=== PATIENT | female | born 1950 | race Caucasian/White ===

== ENCOUNTER 2019-04-20 02:01 | Day surgery (SDC) | payer MEDICARE, SELFPAY ==
[2019-04-14 10:58] VITALS: BMI 25.8
[2019-04-20 08:00] VITALS: BP 162/84; PULSE 88; RESP 18; TEMP 36.2; O2SAT 98; BMI 25.4
--- NOTE | 2019-04-20 08:33 | WPDANESEPPF ---
Anes - Initial Pre Proc Eval Procedure: Operation Date: 04/20/19 09:00 Proposed Procedures p Esophagogastroduodenoscopy - Perez Elizondo MD Date/Time: 04/20/19 08:33 Surgeon: Perez Elizondo MD Pre Op Diagnosis: GERD Patient Data Age: 69 Gender: F Height: 5 ft 2 in Weight: 63 kg Last Vital Signs Temp 36.2 C L 04/20/19 08:00 Pulse 88 04/20/19 08:00 Resp 18 04/20/19 08:00 BP 162/84 H 04/20/19 08:00 Pulse Ox 98 04/20/19 08:00 Allergies Allergy/AdvReac Type Severity Reaction Status Date / Time No Known Allergies Allergy Mild Verified 04/20/19 08:10 Home Medications Medication Instructions Recorded Confirmed Type calcium carbonate 600 mg (1,500 1 tablet PO BID #60 tablet 03/18/19 04/14/19 Rx mg)-vitamin D3 400 unit tablet fenofibrate 160 mg tablet 160 mg PO DAILY 03/18/19 04/14/19 History gabapentin 300 mg capsule 600 mg PO .qhs cap 03/18/19 04/14/19 History metoprolol tartrate 100 mg tablet 100 mg PO DAILY 03/18/19 04/14/19 History omeprazole 20 mg capsule,delayed 10 mg PO DAILY cap 03/18/19 04/14/19 History release pravastatin 40 mg tablet 40 mg PO DAILY 03/18/19 04/14/19 History semaglutide 1 mg/dose (2 mg/1.5 1 mg SUB-Q WEEKLY 90 Days #9.75 ml 03/18/19 04/14/19 Rx mL) subcutaneous pen injector insulin lispro 100 unit/mL See Rx Instructions .ROUTE 03/22/19 04/14/19 Rx subcutaneous pen .COMPLEX #270 ml blood-glucose meter,continuous #1 each 03/24/19 Rx blood-glucose sensor #3 each 03/24/19 Rx blood-glucose transmitter #3 each 03/24/19 Rx acetaminophen [Tylenol Arthritis 650 mg PO Q12H 04/14/19 04/14/19 History Pain] insulin glargine U-300 conc 110 unit SUB-Q DAILY 04/14/19 04/14/19 History [Toujeo SoloStar U-300 Insulin] ergocalciferol (vitamin D2) 1,250 1,250 mcg PO WEEKLY #12 cap 04/18/19 Rx mcg (50,000 unit) capsule Patient hx anesthesia problems: none Family hx anesthesia problems: none PMFSH Past Medical History Medical History Arthritis Diabetes Hyperlipidemia Hypertension Family History Family History Sibling Family history of diabetes mellitus in first degree relative Grandparent Diabetes mellitus Other Cerebrovascular accident Family history of cardiovascular disease Family history of malignant melanoma Social History Social History Smoking status: Never smoker Alcohol intake: current Anes - Eval Final PreProcedure Day of Procedure 04/20/19 08:33 Patient weight: normal Heart: regular rate and rhythm Lungs: clear to auscultation Airway: Mallampati scale class III Neurological: alert and oriented Last oral intake: >/= 8 hours ASA classification: III Emergent: no Anesthetic plan: proceed Anesthesia type and monitoring: general GIVS and standard monitoring Informed Consent: The patient's anesthetic plan and its attendant risks and benefits were discussed with the patient/family/POA. Questions were solicited and answers provided to the satisfaction of the patient/family/POA.
[2019-04-20 08:34] LABS: Glucose Point of Care 103 (65-105)
[2019-04-20] MEDS: LACTATED RINGERS 1,000 ML 150 ML IV CONT (08:38)
--- NOTE | 2019-04-20 08:56 | WPDGICN ---
Assessment and Plan Additional Plan This is a 69-year-old white female patient seen in evaluation at the request of Dr. Albert Mccurdy. Patient has a long history of GE reflux disease. With heartburn indigestion. Previously treated with omeprazole she felt this caused her to have diarrhea. She currently takes Pepcid which she feels may cause her to have constipation. She denies any blood in her stools. She states that heartburn is well controlled with Pepcid or the omeprazole. Because of persistent symptoms she presents today for EGD. She denies any dysphagia. She denies any bleeding. Past medical history is significant for diabetes. Elevated cholesterol. Hypertension. Arthritis. Current medications include Tylenol. Calcium. Fenofibrate. Gabapentin. Insulin. Omeprazole pravastatin. She has no stated drug allergies. Family history is noncontributory. There is no history of colon rectal or stomach disease. Physical exam reveals her to be alert. Vital signs stable. HEENT exam unremarkable. Lungs are clear to auscultation and percussion. Heart is without murmur or extra sounds. Abdominal exam bowel sounds are present soft nontender with no organomegaly. Digital external rectal exam normal. Impression 1. Heartburn. Consistent with GERD. Plan is to continue acid suppression with Pepcid or omeprazole. 2. Alternating bowel habits. Change in bowel habits could consistent with irritable bowel syndrome. Plan is for fiber supplementation. Colonoscopy could be considered electively for screening purposes. Plan is for EGD today to assess her ongoing heartburn in GE reflux disease. Elective colonoscopy according to screening guidelines if not already accomplished. GI Consult Note Consult date/time: 04/20/19 08:56 HPI: Kassandra Morataya is a 69 year old female [facility] Past Medical History Medical History Arthritis Diabetes Hyperlipidemia Hypertension Family History Family History Sibling Family history of diabetes mellitus in first degree relative Grandparent Diabetes mellitus Other Cerebrovascular accident Family history of cardiovascular disease Family history of malignant melanoma Social History Social History Smoking status: Never smoker Alcohol intake: current Meds Home Medications and Allergies Home Medications Medication Instructions Recorded Confirmed Type calcium carbonate 600 mg (1,500 1 tablet PO BID #60 tablet 03/18/19 04/14/19 Rx mg)-vitamin D3 400 unit tablet fenofibrate 160 mg tablet 160 mg PO DAILY 03/18/19 04/14/19 History gabapentin 300 mg capsule 600 mg PO .qhs cap 03/18/19 04/14/19 History metoprolol tartrate 100 mg tablet 100 mg PO DAILY 03/18/19 04/14/19 History omeprazole 20 mg capsule,delayed 10 mg PO DAILY cap 03/18/19 04/14/19 History release pravastatin 40 mg tablet 40 mg PO DAILY 03/18/19 04/14/19 History semaglutide 1 mg/dose (2 mg/1.5 1 mg SUB-Q WEEKLY 90 Days #9.75 ml 03/18/19 04/20/19 Rx mL) subcutaneous pen injector insulin lispro 100 unit/mL See Rx Instructions .ROUTE 03/22/19 04/14/19 Rx subcutaneous pen .COMPLEX #270 ml blood-glucose meter,continuous #1 each 03/24/19 Rx blood-glucose sensor #3 each 03/24/19 Rx blood-glucose transmitter #3 each 03/24/19 Rx acetaminophen [Tylenol Arthritis 650 mg PO Q12H 04/14/19 04/14/19 History Pain] insulin glargine U-300 conc 110 unit SUB-Q DAILY 04/14/19 04/14/19 History [Toujeo SoloStar U-300 Insulin] ergocalciferol (vitamin D2) 1,250 1,250 mcg PO WEEKLY #12 cap 04/18/19 Rx mcg (50,000 unit) capsule Allergies Allergy/AdvReac Type Severity Reaction Status Date / Time No Known Allergies Allergy Mild Verified 04/20/19 08:10 Vital Signs Vital Signs - 24 hr 04/20/19 08:00 Temperature 36.2 C L Pulse Rat
[2019-04-20 09:11] VITALS: BP 104/76; PULSE 76; RESP 18; O2SAT 95
[2019-04-20 09:21] VITALS: BP 118/74; PULSE 83; RESP 18; O2SAT 95
[2019-04-20 09:31] VITALS: BP 137/77; PULSE 78; RESP 18; O2SAT 95
== END 2019-04-20 09:39 | disposition home or self-care (01) ==
PROVIDERS: PCP Family Medicine Adolescent Medicine; Visit Provider Internal Medicine Gastroenterology
PROC: 0DJ08ZZ Inspection of Upper Intestinal Tract, Via Natural or Artificial Opening Endoscopic (ICD-10-PCS; CPT 43235; principal; 2019-04-20 09:00)
DX: K21.9 Gastro-esophageal reflux disease without esophagitis (principal); R19.4 Change in bowel habit; I10 Essential (primary) hypertension; E78.5 Hyperlipidemia, unspecified; E11.9 Type 2 diabetes mellitus without complications; M19.90 Unspecified osteoarthritis, unspecified site; Z79.4 Long term (current) use of insulin
CPT/HCPCS: 43239; 87081; J2704; J7120

== ENCOUNTER → 2020-01-06 10:24 | Outpatient (CLI) | payer MEDICARE, SELFPAY ==
--- NOTE | ~2020-01-06 | MM_ITS ---
EXAMINATION: MM screening елена BI w nahun HISTORY: Screening TECHNIQUE: Craniocaudal and mediolateral oblique 3-D tomosynthesis images were obtained and synthetic 2-D images were generated. CAD analysis was submitted and interpreted. COMPARISON: Comparison to multiple prior studies sequentially, with oldest reviewed study dated 04/19. BREAST PARENCHYMAL COMPOSITION: There are scattered areas of fibroglandular density. FINDINGS: There is no evidence of suspicious mass, calcification, or architectural distortion to sugg est malignancy in either breast. There has been no suspicious interval change. IMPRESSION: 1. No mammographic evidence of malignancy. 2. Recommend routine screening mammography in one year. BI-RADS Category 1: Negative Reviewed, dictated and finalized at location A.
== END ==
PROVIDERS: Visit Provider Internal Medicine Endocrinology, Diabetes & Metabolism
DX: Z12.31 Encounter for screening mammogram for malignant neoplasm of breast (principal)
CPT/HCPCS: 77063; 77067

== ENCOUNTER 2020-06-18 15:09 | Outpatient (CLI) | payer MEDICARE, SELFPAY ==
[2020-06-18 16:18] LABS: HDL Direct 45 mg/dL
[2020-06-18 16:28] LABS: LDL Cholesterol Direct 66 mg/dL
[2020-06-18 16:35] LABS: Vitamin D 25 Hydroxy 48.6 ng/mL
[2020-06-18 16:36] LABS: Creatinine Urine 52.4 mg/dL
[2020-06-18 16:53] LABS: MALB Creatinine Ratio < 11.5 mg/g (0-30); Microalbumin Urine Random < 6.0 mg/L (0-16.7)
== END 2020-06-18 15:10 | disposition home or self-care (01) ==
LOC: ANHWCLAB 15:12
PROVIDERS: Referring Provider Internal Medicine Endocrinology, Diabetes & Metabolism; Visit Provider Internal Medicine Endocrinology, Diabetes & Metabolism
DX: E11.9 Type 2 diabetes mellitus without complications (principal); M81.0 Age-related osteoporosis without current pathological fracture; R79.89 Other specified abnormal findings of blood chemistry
CPT/HCPCS: 36415; 82043; 82306; 83718; 83721

== ENCOUNTER → 2021-07-12 10:59 | Outpatient (CLI) | payer MEDICARE, SELFPAY ==
--- NOTE | ~2021-07-12 | DEXA_ITS ---
Bone Density Report Name: TOMAS CARRASCO Age: 71 Sex: Female Ethnicity: White Date of : 1950 Indication: postmenopausal; screening for osteoporosis; prior fracture; Referring Provider: TUAN GILL Study: Bone densitometry was performed. Exam Date: July 12, 2021 Accession number: [id number] Bone Density: Region BMD T-score Z-score Classification AP Spine (L1-L4) 1.064 0.2 2.4 Normal Femoral Neck (Left) 0.774 -0.7 1.2 Normal Total Hip (Left) 0.869 -0.6 1.0 Normal Femoral Neck (Right) 0.790 -0.5 1.4 Normal Total Hip (Right) 0.858 -0.7 0.9 Normal Total Hip Mean 0.864 -0.7 1.0 Normal World Health Organization criteria for BMD impression classify patients as: Normal (T-score at or above -1.0), Osteopenia (T-score between -1.0 and -2.5), or Osteoporosis (T-score at or below -2.5). 10-year Fracture Risk: FRAX not reported because: All T-scores for Spine Total, Hip Total, Femoral Neck at or above -1.0 Previous Exams: Region Exam Age BMD T-score BMD Change BMD Change Date g/cm2 vs Baseline vs Previous AP Spine(L1-L4) 07/12/2021 71 1.064 0.2 0.163* -0.009 04/14/2019 69 1.074 0.2 0.172* 0.129* 11/16/2012 62 0.945 -0.9 0.043* 0.043* 04/19/2010 60 0.901 -1.3 Total Hip(Left) 07/12/2021 71 0.869 -0.6 0.056* 0.026 04/14/2019 69 0.842 -0.8 0.030* -0.009 11/16/2012 62 0.851 -0.7 0.039* 0.039* 04/19/2010 60 0.813 -1.1 Total Hip(Right) 07/12/2021 71 0.858 -0.7 0.065* 0.018 04/14/2019 69 0.840 -0.8 0.048* 0.020 11/16/2012 62 0.820 -1.0 0.027* 0.027* 04/19/2010 60 0.792 -1.2 *Denotes significance at 95% confidence level, LSC for AP Spine = 0.022 g/cm2, LSC for Total Hip = 0.027 g/cm2 Clinical Information Provided by Patient: Has had a low trauma fracture Smokes Has used the following medications: Vitamin D Patient maximum height was 62.5 Menopause Age: 55 No regular weight bearing exercise Drinks caffeinated beverages Onset of menses at age 13 Number of children 1 Impression: The patient has normal bone mass. The patient has risk factors, including: smoking, previous fracture. No significant bone loss was observed. Discussion: BONE DENSITY IS ABOVE THE MINIMUM DESIRABLE LEVEL AT ALL SKELETAL SITES TESTED. This pat
== END ==
PROVIDERS: PCP Family Medicine Adolescent Medicine; Visit Provider Nurse Practitioner Family
DX: M81.0 Age-related osteoporosis without current pathological fracture (principal)
CPT/HCPCS: 77080

== ENCOUNTER → 2021-07-12 11:00 | Outpatient (CLI) | payer MEDICARE, SELFPAY ==
--- NOTE | ~2021-07-12 | MM_ITS ---
EXAMINATION: MM screening елена BI w nahun HISTORY: Screening mammogram TECHNIQUE: Craniocaudal and mediolateral oblique 3-D tomosynthesis images were obtained and synthetic 2-D images were generated. CAD analysis was submitted and interpreted. COMPARISON: 01/06/2020, 10/09/2018, 08/07/2016 bilateral screening mammogram examinations BREAST PARENCHYMAL COMPOSITION: There are scattered areas of fibroglandular density. FINDINGS: There is no evidence of suspicious mass, calcification, or architectural distortion to sugg est malignancy in either breast. There has been no suspicious interval change. IMPRESSION: 1. No mammographic evidence of malignancy. 2. Recommend routine screening mammography in one year. BI-RADS Category 1: Negative Reviewed, dictated and finalized at location A.
== END ==
PROVIDERS: PCP Family Medicine Adolescent Medicine; Visit Provider Family Medicine Adolescent Medicine
DX: Z12.31 Encounter for screening mammogram for malignant neoplasm of breast (principal)
CPT/HCPCS: 77063; 77067

== ENCOUNTER → 2021-12-09 08:45 | Outpatient (CLI) | payer MEDICARE, SELFPAY ==
--- NOTE | ~2021-12-09 | CT_ITS ---
EXAMINATION: CT abdomen pelvis w con DATE: 12/09/2021 09:14 INDICATION: Left upper quadrant tenderness. Diarrhea. TECHNIQUE: Computed tomography (CT) of the abdomen and pelvis was performed with 100 cc Omnipaque 350 intravenous contrast. The dose-length product was 452.65 mGy-cm. Automated exposure control and iter ative reconstruction technique were employed. COMPARISON: None. FINDINGS: There is a small 2 mm right lower lobe nodule, likely benign. Heart size normal. No signifi cant pleural or pericardial effusion. Moderate atherosclerosis of the aorta without evidence for aneu rysm. No lymphadenopathy. There is mild thickening of the gastric wall which may be due to underdiste ntion or gastritis. Fatty infiltration of the liver. Gallbladder is present. Colonic diverticulosis without evidence for diverticulitis. No free air or fr ee fluid. The spleen, pancreas, adrenal glands and kidneys are unremarkable. There is a partially obinna cified uterine fibroid. Mild-moderate lower thoracic and lumbar spondylosis. IMPRESSION: 1. Gastric wall thickening which may be due to underdistention or gastritis. Reviewed, dictated and finalized at location A.
[2021-12-10 14:25] LABS: Estimated Glomerular Filt Rate 55
== END ==
PROVIDERS: PCP Family Medicine Adolescent Medicine; Visit Provider Physician Assistant
DX: R10.812 Left upper quadrant abdominal tenderness (principal); M47.815 Spondylosis without myelopathy or radiculopathy, thoracolumbar region; R19.7 Diarrhea, unspecified; K57.30 Diverticulosis of large intestine without perforation or abscess without bleeding; D25.9 Leiomyoma of uterus, unspecified
CPT/HCPCS: 74177; Q9967

== ENCOUNTER 2022-04-17 14:30 | Outpatient (CLI) | payer MEDICARE, SELFPAY ==
--- NOTE | ~2022-04-17 | US_ITS ---
EXAMINATION: US art doppler w press LE DATE: 04/17/2022 16:13 INDICATION: Peripheral arterial disease. TECHNIQUE: Segmental pressures and plethysmographic and Doppler waveforms of the brachial and lower e xtremity arteries were obtained. COMPARISON: None. FINDINGS: Right and left brachial artery pressures of 143 mm Hg and 140 mm Hg, respectively, are concordant (no rmal difference <= 30 mmHg). The right low-thigh pressure index is 1.20. The right ankle-brachial index (THERESA) is 0.78 (normal >= 0 .9-1.0). The right great toe-brachial index (TBI) is 0.43 (normal >= 0.65). The right lower extremity segmental pressure gradients are increased between below knee and ankle measurements (normal gradien ts <= 20-30 mmHg between adjacent levels on the same leg or the same levels on the two legs). Arteria l Doppler waveforms are biphasic from common femoral artery to the ankle. The left low-thigh pressure index is 1.10. The left THERESA is 0.66. The left TBI is 0.35. The left lower extremity segmental pressure gradients are increased from above-knee and below-knee measurements. Ar terial Doppler waveforms are biphasic from common femoral artery to the ankle. IMPRESSION: 1. Mildly decreased right THERESA and moderately decreased left THERESA, consistent with arterial occlusive d isease, likely predominantly in the right calf and left popliteal regions. Reviewed, dictated and finalized at location A. [employer]INTING MACHINE OPERATOR IMPRESSION: 1. Mildly decreased right THERESA and moderately decreased left THERESA, consistent wit h arterial occlusive disease, likely predominantly in the right calf and left p opliteal regions.
== END 2022-04-17 14:31 | disposition home or self-care (01) ==
PROVIDERS: PCP Family Medicine Adolescent Medicine; Visit Provider Internal Medicine Cardiovascular Disease
DX: I73.9 Peripheral vascular disease, unspecified (principal); M62.89 Other specified disorders of muscle
CPT/HCPCS: 93923

== ENCOUNTER 2024-06-28 10:16 | Outpatient (CLI) | payer MEDICARE, SELFPAY ==
--- NOTE | ~2024-06-28 | MR_ITS ---
MRI of the right shoulder Technique: Axial proton-density fat-sat images, coronal proton density fat-sat and T2 fat-sat images, and sagittal T1-weighted and T2 fat-sat images were acquired. Clinical History: Pain Findings: There is severe AC joint degenerative change, bony productive change of the distal clavicle , small subacromial spur, and fluid in the joint space. Coracoclavicular, coracoacromial, and coracoh umeral ligaments appear intact. There are full-thickness tears involving the entirety of the supraspinatus and infraspinatus tendons, which are retracted to the medial third of the humeral head. Fluid-filled gap overall measures up to approximately 3.5 x 3.7 cm in extent. Subscapularis tendon is intact. Tendon of the long head of the biceps is intact. No definite labral tear seen. Inferior glenohumeral ligament is intact. There are small glenohumeral joint effusion with fluid pass ing through the rotator cuff defect into the subacromial/subdeltoid bursa. No degenerative change of the glenohumeral joint. Probable mild fatty infiltration of the supraspinatus and infraspinatus muscl e bellies. Impression: Complete, full-thickness tears of the entirety of the supraspinatus and infraspinatus tendons, as det valerie above. Suspected mild fatty atrophic change/infiltration of these muscle bellies. Severe AC joint degenerative change. Reviewed, dictated and finalized at [facility]. Impression: Complete, full-thickness tears of the entirety of the supraspinatus and infrasp inatus tendons, as detailed above. Suspected mild fatty atrophic change/infiltr ation of these muscle bellies. Severe AC joint degenerative change.
== END 2024-06-28 10:17 | disposition home or self-care (01) ==
LOC: MICIMG 10:16
PROVIDERS: PCP Family Medicine Adolescent Medicine; Visit Provider Physician Assistant Surgical
DX: M75.101 Unspecified rotator cuff tear or rupture of right shoulder, not specified as traumatic (principal); M19.011 Primary osteoarthritis, right shoulder
CPT/HCPCS: 73221

== ENCOUNTER 2025-01-18 12:46 | Outpatient (CLI) | payer MEDICARE, SELFPAY ==
--- NOTE | ~2025-01-18 | MR_ITS ---
EXAMINATION: MR lumbar spine wo con DATE: 01/18/2025 13:45 INDICATION: Foot drop. TECHNIQUE: Magnetic resonance imaging (MRI) of the lumbar spine was performed without intravenous contrast. Sequences included sagittal T2-weighted FSE, sagittal T2-weighted FS FSE, sagittal T1-weighted FSE, and axial T2-weighted FSE. COMPARISON: None FINDINGS: There is 9 degrees levocurvature of lumbar spine. There is 3 mm anterolisthesis of L4 on L5. There is mild chronic anterior wedging of T12 vertebral body. There is severely decreased disc height at T12-L1, mildly decreased disc height at L2-L3, severely decreased disc height at L3-L4, moderat elaine decreased disc height at L4-L5, and spine disc height at L5-S1. The distal spinal cord signal intensity is normal. The conus medullaris is at T12-L1. The following disc levels are specifically discussed: L1-L2: The disc is bulging. There is mild bilateral facet joint osteoarthritis. There is mild bilateral neural foraminal stenosis. There is mild central canal stenosis. L2-L3: The disc is bulging and has an annular fissure. There is mild bilateral facet joint osteoarthritis. There is mild bilateral neural foraminal stenosis. There is mild central canal stenosis. L3-L4: The disc is bulging and has an annular fissure. There is moderate bilateral facet joint osteoarthritis. There is moderate bilateral neural foraminal stenosis. There is mild central canal stenosis. L4-L5: The disc is bulging and has an annular fissure. There is severe bilateral facet joint osteoarthritis. There is mild bilateral neural foraminal stenosis. There is mild central canal stenosis. L5-S1: The disc is bulging and has an annular fissure. There is severe bilateral facet joint osteoarthritis. There is mild bilateral neural foraminal stenosis. There is mild central canal stenosis. IMPRESSION: 1. Severe lumbar spondylosis. Reviewed, dictated and finalized at location E.
== END 2025-01-18 12:47 | disposition home or self-care (01) ==
LOC: MICIMG 12:48
PROVIDERS: PCP Orthopaedic Surgery; Visit Provider Orthopaedic Surgery
DX: M21.379 Foot drop, unspecified foot (principal); M47.896 Other spondylosis, lumbar region
CPT/HCPCS: 72148